=== PATIENT | male | born 1975 | race Caucasian/White ===

== ENCOUNTER → 2020-11-15 | Outpatient (CLI) | payer OTHER | END | disposition home or self-care (01) | LOC: CVU 11:52 | PROVIDERS: ATTEND Internal Medicine Cardiovascular Disease | DX: I34.0 Nonrheumatic mitral (valve) insufficiency (principal); I11.9 Hypertensive heart disease without heart failure; R07.89 Other chest pain; R01.1 Cardiac murmur, unspecified | CPT/HCPCS: 78452; 93017; 93306; 93356; A9502 ==